=== PATIENT | male | born 1990 | race Caucasian/White ===

== ENCOUNTER → 2016-07-28 | Outpatient (CLI) | payer OTHER ==
[~2016-07-28] MED LIST: NAPR500T PO
--- NOTE | 2016-07-28 16:39 | REP ---
Chest two views HISTORY: Contusion Comparison: None The lungs are clear. The heart is normal in size. The pulmonary vasculature is normal in appearance. The bony structure is intact. IMPRESSION: No acute disease. Signed by Jagjit Gould MD 07/28/2016 04:31 P
== END ==
LOC: M WUC 16:07
PROVIDERS: ATTEND Physician Assistant
DX: S20.212A Contusion of left front wall of thorax, initial encounter (principal); X58.XXXA Exposure to other specified factors, initial encounter; Y92.89 Other specified places as the place of occurrence of the external cause

== ENCOUNTER → 2016-07-31 | Emergency (ER) | payer OTHER, SELFPAY ==
[~2016-07-31] VITALS: Ht 182.9 cm; Wt 68.0 kg
[~2016-07-31] MED LIST changes: +traMADol 50 MG TAB PO ONE
[2016-08-01 00:25] VITALS: BP 114/68
--- NOTE | 2016-08-02 09:19 | ECGEPIP ---
Stationary ECG Study [facility] - ED Test Date: 2016-07-31 Pat Name: JUSTIN CORNEJO Department: Room: - Gender: M Manager Internal: : 1990 Requested By: MARYCRUZ GAN Order Number: [id number] Reading MD: Arcelia Street Measurements Intervals [place] Rate: 72 P: 63 DC: 147 QRS: 60 QRSD: 90 T: 39 QT: 375 QTc: 411 Interpretive Statements SINUS RHYTHM ST ELEVATION, PROBABLY EARLY REPOLARIZATION, CLINICAL CORRELATION NO PRIOR FOR COMPARISON Electronically Signed On 08-02-2016 9:18:[address]
== END | disposition home or self-care (01) ==
LOC: M ED 23:48
DX: S20.211A Contusion of right front wall of thorax, initial encounter (principal); V49.40XA Driver injured in collision with unspecified motor vehicles in traffic accident, initial encounter; Y92.410 Unspecified street and highway as the place of occurrence of the external cause; Y93.89 Activity, other specified; Y99.8 Other external cause status; Z87.442 Personal history of urinary calculi

== ENCOUNTER → 2016-12-15 | Outpatient (REF) ==
[~2016-12-15] MED LIST changes: -traMADol 50 MG TAB PO ONE
--- NOTE | 2016-12-15 12:09 | REP ---
Right foot four views : There is no fracture or dislocation. Mineralization and joint spaces are normal. There are no calcifications or foreign bodies. Impression: Negative right foot . Signed by Obed Sanabria MD 12/15/2016 12:01 P
== END ==
LOC: M SMT 11:31
PROVIDERS: ATTEND Internal Medicine
DX: Z02.71 Encounter for disability determination (principal)

== ENCOUNTER → 2017-08-03 | Outpatient (CLI) | payer OTHER | LOC: M CARPUL 08:38 | DX: Z82.69 Family history of other diseases of the musculoskeletal system and connective tissue (principal) | CPT/HCPCS: 93306 ==

== ENCOUNTER → 2025-03-25 | Outpatient (CLI) | payer OTHER ==
[~2025-03-25] MED LIST changes: +NAPR-837 PO; -NAPR500T PO
== END ==
LOC: M RAD 06:48
PROVIDERS: ATTEND Registered Nurse
DX: M51.360 Other intervertebral disc degeneration, lumbar region with discogenic back pain only (principal); M47.816 Spondylosis without myelopathy or radiculopathy, lumbar region; M50.221 Other cervical disc displacement at C4-C5 level; M48.02 Spinal stenosis, cervical region; M25.78 Osteophyte, vertebrae; M47.812 Spondylosis without myelopathy or radiculopathy, cervical region